=== PATIENT | female | born 1965 | race Caucasian/White ===

== ENCOUNTER 2021-05-05 13:10 | Emergency (ER) | payer MEDICAID, OTHER ==
[~2021-05-05] VITALS: Ht 162.6 cm; Wt 76.2 kg
[2021-05-05 13:55] VITALS: BP 114/76
[2021-05-05] MEDS ORDERED: ACETAMINOPHEN 500 MG TAB PO ONE (14:00)
[2021-05-05 14:39] LABS: Basophils # (auto) 0 10 ^3/uL (0-0.2); Basophils % (auto) 0.2 % (0.0-2.0); Eosinophils # (auto) 0 10 ^3/uL (0-0.8); Hematocrit 42.2 % (36.0-46.0); Hemoglobin 14.5 g/dL (12.2-16.2); Lymphocytes # (auto) 0.8 10 ^3/uL (0.4-5.4); Lymphocytes % (auto) 23.2 % (10.0-50.0); Mean Corpuscular Hemoglobin 31.2 pg (28.0-32.0); Mean Corpuscular Hgb Conc. 34.2 g/dL (32.0-36.0); Monocytes # (auto) 0.2 10 ^3/uL (0-1.3); Monocytes % (auto) 6.1 % (0.0-12.0); Neutrophils # (auto) 2.3 10 ^3/uL (1.6-8.6); Neutrophils % (auto) 70.5 % (37.0-80.0); Nucleated Red Blood Cells % 0.1 %; Red Blood Cells 4.64 10^6/uL (4.0-5.20); Red Cell Distribution Width 13.4 % (11.8-14.3); White Blood Cell 3.3 10^3/uL (4.4-10.8)
[2021-05-05 14:58] LABS: Albumin 3.1 g/dL (3.4-5.0); Anion Gap 8 (5-15); Blood Urea Nitrogen 11 mg/dL (7-18); Calcium 8.3 mg/dL (8.5-10.1); Carbon Dioxide 26 mmol/L (21-32); Chloride 99 mmol/L (98-107); Glucose 111 mg/dL (74-106); Potassium 3.6 mmol/L (3.5-5.1); Sodium 133 mmol/L (136-145)
[2021-05-05 15:07] LABS: Alanine Aminotransferase 35 U/L (13-56); Alkaline Phosphatase 50 U/L (45-117); Aspartate Aminotransferase 38 U/L (15-37); Bilirubin, Total 0.4 mg/dL (0.2-1.0); CRP High Sensitivity 4.39 mg/dL (< 0.3); GFR African American 82 mL/min; GFR Non-African American 68 mL/min; Total Protein 7.7 g/dL (6.4-8.2)
== END 2021-05-05 17:04 | disposition left against medical advice (07) ==
LOC: ER 13:10
DX: U07.1 COVID-19 (principal); J12.82 Pneumonia due to coronavirus disease 2019
CPT/HCPCS: 36415; 71045; 80053; 82728; 83605; 83880; 84484; 85025; 86141; 87040